=== PATIENT | female | born 1985 | race Caucasian/White ===

== ENCOUNTER 2019-03-29 | Emergency (ER) | payer OTHER ==
[2019-03-29] MEDS ORDERED: PRENATAL 19 TA1 EACH PO (00:10)
[2019-03-29] MEDS ORDERED: AMOXICILLIN 50500 MG PO (00:27)
[2019-03-29] MEDS ORDERED: NORCO 325 MG-51 TA1 PO (00:27)
[2019-03-29 00:38] VITALS: BP 138/96
== END 2019-03-29 00:38 | disposition home or self-care (01) ==
LOC: ED
DX: K08.89 Other specified disorders of teeth and supporting structures (principal)

== ENCOUNTER → 2020-08-20 | Outpatient (CLI) | payer OTHER ==
[~2020-08-20] MED LIST: AMOXICILLIN 50500 MG PO; NORCO 325 MG-51 TA1 PO; PRENATAL 19 TA1 EACH PO
[2020-08-20 08:38] LABS: ALBUMIN 4.2 g/dL (3.5-5.0); POTASSIUM 4.2 mmol/L (3.5-5.1)
[2020-08-20 08:40] LABS: CALCIUM 9.1 mg/dL (8.3-10.5)
[2020-08-20 08:41] LABS: TOTAL PROTEIN 7.2 g/dL (6.4-8.3)
[2020-08-20 08:43] LABS: TOTAL BILIRUBIN 0.5 mg/dL (0.2-1.2)
== END ==
LOC: LAB 08:09
PROVIDERS: Family Medicine
DX: Z00.00 Encounter for general adult medical examination without abnormal findings (principal); Z13.1 Encounter for screening for diabetes mellitus; E78.00 Pure hypercholesterolemia, unspecified

== ENCOUNTER → 2021-12-05 | Outpatient (CLI) | payer OTHER ==
[2021-12-05 08:09] LABS: HEMOGLOBIN 13.1 g/dL (12.5-16.0); MEAN PLATELET VOLUME 8.5 fl (7.4-10.4); RED BLOOD COUNT 4.22 M/mm3 (4.10-5.30); RED CELL DISTRIBUTION WIDTH 12.7 % (11.5-14.5); WHITE BLOOD COUNT 5.3 K/mm3 (4.8-10.8)
[2021-12-05 08:16] LABS: ALBUMIN 3.8 g/dL (3.5-5.0); POTASSIUM 4.5 mmol/L (3.5-5.1)
[2021-12-05 08:17] LABS: CALCIUM 8.8 mg/dL (8.3-10.5)
[2021-12-05 08:20] LABS: TOTAL BILIRUBIN 0.7 mg/dL (0.2-1.2)
== END ==
LOC: LAB 07:56
PROVIDERS: Family Medicine
DX: L70.9 Acne, unspecified (principal); Z13.1 Encounter for screening for diabetes mellitus; F41.8 Other specified anxiety disorders; Z83.49 Family history of other endocrine, nutritional and metabolic diseases; Z83.3 Family history of diabetes mellitus

== ENCOUNTER → 2023-12-23 | Outpatient (CLI) | payer OTHER | LOC: LAB 08:32 | DX: Z13.220 Encounter for screening for lipoid disorders (principal); Z13.1 Encounter for screening for diabetes mellitus ==